=== PATIENT | female | born 1970 | race Caucasian/White ===

== ENCOUNTER 2018-11-12 13:45 | Outpatient (CLI) | payer OTHER ==
--- NOTE | 2018-11-12 14:55 | MMO ---
Bilateral MAMMO Bilat Diag [facility]. CLINICAL HISTORY: Patient is 48 years old and is seen for diagnostic exam and pain in the outer region of the left breast. The patient has the following family history of breast cancer: maternal grandmother. The patient has no personal history of cancer. VIEWS: The views performed were: bilateral craniocaudal with tomosynthesis; bilateral mediolateral oblique with tomosynthesis; and bilateral mediolateral. FILMS COMPARED: The present examination has been compared to a prior imaging study performed at [facility] on 11/12/2018. MAMMOGRAM FINDINGS: The breasts are heterogeneously dense, which could obscure a lesion on mammography. There are no suspicious masses, suspicious calcifications, or new areas of architectural distortion. There are no mammographic or sonographic abnormalities in the area of palpable concern. The patient is referred back to her clinician. Negative imaging findings should not preclude biopsy if clinical findings are suspicious. IMPRESSION: THERE ARE NO MAMMOGRAPHIC OR SONOGRAPHIC ABNORMALITIES IN THE AREA OF PALPABLE CONCERN. THE PATIENT IS REFERRED BACK TO HER CLINICIAN. NEGATIVE IMAGING FINDINGS SHOULD NOT PRECLUDE BIOPSY IF CLINICAL FINDINGS ARE SUSPICIOUS. THE RESULTS OF THIS EXAM WERE SENT TO THE PATIENT. ACR BI-RADS Category 1 - Negative MAMMOGRAPHY NOTE: 1. A negative mammogram report should not delay a biopsy if a dominant of clinically suspicious mass is present. 2. Approximately 10% to 15% of breast cancers are not detected by mammography. 3. Adenosis and dense breasts may obscure an underlying neoplasm.
--- NOTE | 2018-11-12 15:00 | ULT ---
LIMITED LEFT BREAST ULTRASOUND: 11/12/18 PROVIDED CLINICAL HISTORY: Focal left breast pain. FINDINGS: Limited sonographic interrogation of the left breast was performed at the 3 o'clock position in the r egion of patient pain. The sonographic appearance of the breast in this region is normal. IMPRESSION: No mammographic or sonographic abnormalities are evident in the region of patient pain. Negative imag ing findings should preclude further evaluation of a clinically suspicious area. The patient is refer red back to her clinician. POS: OFF
== END 2018-11-12 13:46 | disposition home or self-care (01) ==
LOC: BICMAMMO 13:45
PROVIDERS: ATTEND Family Medicine
DX: N64.89 Other specified disorders of breast (principal); N64.4 Mastodynia; Z80.3 Family history of malignant neoplasm of breast
CPT/HCPCS: 77066; G0279

== ENCOUNTER 2018-11-12 15:20 | Outpatient (CLI) | payer OTHER ==
--- NOTE | 2018-11-12 15:34 | RAD ---
2 views right hip: 11/12/2018 COMPARISON: None HISTORY: Right hip pain, twisted hip 2 years ago FINDINGS: No fracture or dislocation. No radiopaque foreign body or subcutaneous gas. IMPRESSION: No acute findings.
== END 2018-11-12 15:21 | disposition home or self-care (01) ==
LOC: BICRAD 15:20
PROVIDERS: ATTEND Family Medicine
DX: M25.551 Pain in right hip (principal)